=== PATIENT | female | born 1985 | race Hispanic/Latino ===

== ENCOUNTER 2019-09-05 13:10 | Emergency (ER) | payer MEDICAID | END 2019-09-05 14:35 | disposition home or self-care (01) | LOC: EDH 13:10 | DX: I10 Essential (primary) hypertension (principal) ==

== ENCOUNTER 2024-09-28 18:46 | Emergency (ER) | payer SELFPAY ==
[~2024-09-28] VITALS: Ht 160 cm; Wt 79.8 kg
[2024-09-28] MEDS ORDERED: IBUP-2077 PO (18:55)
[2024-09-28] MEDS ORDERED: CLIN-141 PO (18:55)
--- NOTE | 2024-09-28 18:56 | ERN ---
ED Note History of Present Illness Stated Complaint: C/O SWELLING TO RT SIDE OF FACE W/FACIAL DROOPING Chief Complaint: Face Pain/Problem Time Seen by MD: 18:48 Dictation: PATIENT IS A 39-YEAR-OLD FEMALE HERE WITH HER MOTHER WITH COMPLAINTS OF DENTAL PAIN WITH MILD SWELLING TO TOOTH NUMBER 28 AND 29 SHE HAS HAD FOR SEVERAL DAYS. SHE HAS HAD NO FEVER NO CHILLS NO NAUSEA VOMITING. STATES SHE DOES NOT HAVE A PRIMARY CARE DOCTOR NOR HAS SHE SEE A DENTIST. SHE TOLD ME HER TEETH HAVE BEEN ROTTEN FOR A LONG TIME AND FINALLY THEY BROKE OFF AT THE ROOT. Allergies: Coded Allergies: No Known Allergies (Unverified Allergy, Unknown, 09/28/24) Past Medical History History: Not Applicable RN Note Reviewed/Agreed w/PFSH: Yes Review of System Dictation CONSTITUTIONAL: NEGATIVE EXCEPT FOR HPI HEAD/FACE: NEGATIVE EXCEPT FOR HPI EENT: NEGATIVE EXCEPT FOR HPI DECAY TEETH NUMBER 28 AND 29 WITH MILD FACIAL SWELLING PROXIMAL RESPIRATORY: NEGATIVE EXCEPT FOR HPI GASTROINTESTINAL/ABDOMINAL: NEGATIVE EXCEPT FOR HPI GENITOURINARY: NEGATIVE EXCEPT FOR HPI MUSCULOSKELETAL: NEGATIVE EXCEPT FOR HPI INTEGUMENTARY: NEGATIVE EXCEPT FOR HPI NEUROLOGICAL/PSYCH: NEGATIVE EXCEPT FOR HPI HEMATOLOGIC/LYMPHATIC: NEGATIVE EXCEPT FOR HPI ALL SYSTEMS NEGATIVE, EXCEPT NOTED ABOVE. 13 POINT REVIEW OF SYSTEMS ASSESSED AND ALL NEGATIVE EXCEPT FOR ABOVE. Physical Exam Dictation VITAL SIGNS REVIEWED GENERAL APPEARANCE: ALERT, ORIENTED X 3, MILD ACUTE DISTRESS, WELL DEVELOPED, NOURISHED. HEAD AND FACE: NON-TRAUMATIC. EYES: PERRL, PINK CONJUNCTIVAS, EYELID NO TRAUMA, ANTERIOR CHAMBER WITH ARCUS SENILIS. EARS: PINNAS INTACT AND NO SIGNS OF TRAUMA OR ERYTHEMA EAR CANALS CLEAR AND NO DISCHARGE TM NO ERYTHEMA NOSE: NO DISCHARGE, NO BLEEDING. OROPHARYNX: TEETH ARE FRACTURED OFF AT NUMBER 28 AND 29 WITH DENTAL CARIES NOTED MILD RIGHT FACIAL SWELLING PROXIMAL TOOTH NUMBER 28 29 PHARYNX CLEAR,NO ERYTHEMA, TONSILS NO EXUDATES, NO ABSCESSES NOTED, MUCOUS MEMBRANE MOIST NECK: SUPPLE, NON-TENDER, NO THYROMEGALY, NO MASSES, NO JVD, NO BRUITS BREAST:DEFERRED CHEST:NO TENDERNESS, NO CREPITUS, NO PARADOXICAL MOVEMENT, NO RETRACTIONS LUNGS:CLEAR, WELL-VENTILATED, SYMMETRIC, NO RALES, NO WHEEZING, NO RHONCHI, NO STRIDOR, GOOD BREATH SOUNDS BILATERALLY HEART: REGULAR RATE, REGULAR RHYTHM, NO MURMUR, NO GALLOPS VASCULAR: NO PERIPHERAL EDEMA, ABDOMEN: SOFT, POSITIVE BOWEL SOUNDS, NONDISTENDED, NO GUARDING, NONTENDER, NO REBOUND, NO MASSES NO HEPATOMEGALY, NO SPLENOMEGALY, NO BERNSTEIN'S S IGN, NO HERNIAS. RECTAL: DEFERRED GENITAL: DEFERRED NEUROLOGICAL: NORMAL SPEECH, MOTOR FUNCTION INTACT, SENSORY FUNCTION INTACT MUSCULOSKELETAL: NECK NONTENDER, FULL RANGE OF MOTION, BACK NONTENDER, FULL RANGE OF MOTION, EXTREMITIES: NONTENDER, FULL RANGE OF MOTION SKIN: COLOR PINK, DRY, NO TURGOR, NO RASH, NO LACERATIONS, NO ABRASIONS, NO CONTUSIONS. LYMPHATIC: DEFERRED Results (Laboratory/Radiology) Labs Reviewed?: Yes ED Course ED Course Orders Procedure Category Date Status Time Ibuprofen 800 Mg Tab PHA 09/28/24 In Process (Motrin) 19:00 EIGHTEEN 52 MOTHER WAS EXPLAINED THAT WE HAVE NO DENTIST AVAILABLE IN THE EMERGENCY ROOM. I WOULD INITIATE TREATMENT WITH A AN NSAID, WE WILL PRESCRIBED CLINDAMYCIN AND TOLD HER TO GO TO [place] OR SEE ONE OF THE LOCAL DENTIST IN THE [facility] WITH A AN AFTER HOURS EMERGENCY NUMBER. Medical Decision Making MDM MEDICAL DISCHARGE MAKING BASED ON EMPIRIC TREATMENT FOR DENTAL CARIES INTO THE PULP AND FACIAL SWELLING. PATIENT WAS GIVEN CLINDAMYCIN PRESCRIPTION WITH IBUPROFEN GIVEN IBUPROFEN IN THE EMERGENCY ROOM FOR TREATMENT OF PAIN AND TOLD TO FIND A DENTIST WITH A AN AFTER HOURS EMERGENCY NUMBER OR GO TO [place] FOR TREATMENT DX & DISP Disposition: Discharge Departure Impression: Primary Impression: Dental caries extending into pulp Additional Impression: Dentalgia Condition: Stable Scripts Ibuprofen (Ibuprofen 800 mg Tab) 800 Mg Tab 800 MG PO Q8H PRN for fever or pain, #30 TAB 0 Refills Prov: MADHURI MAR NP 09/28/24 Clindamycin HCl (Clindamycin HCl) 300 Mg Capsule 1 CAP PO QID for 10 Days, #40 CAP 0 Refills TAKE TWO CAPSULES FOR 1ST DOSE, THEN TAKE ONE CAPSULE EVERY 6 HOURS DIRECTED UNTIL GONE Prov: MADHURI MAR NP 09/28/24 Additional Instructions: FOLLOW-UP WITH PRIMARY CARE PROVIDER IN 1 TO 2 DAYS. TAKE MEDICATIONS DIRECTED HERE IN THE EMERGENCY ROOM. OKAY TO CONTINUE HOME MEDICATIONS UNLESS OTHERWISE DISCUSSED DURING YOUR VISIT IN THE EMERGENCY ROOM TODAY. RETURN TO YOUR NEAREST EMERGENCY ROOM IF SYMPTOMS WORSEN OR IF THERE IS NO IMPROVEMENT. CALL 911 IF YOU NEED IMMEDIATE ASSISTANCE. TAKE TYLENOL OR MOTRIN OVE [id number] NEEDED AND IF NO CONTRAINDICATIONS ARE PRESENT. INCREASE ORAL HYDRATION. A WOUND CULTURE OR URINE CULTURE WAS ORDERED HERE IN THE EMERGENCY ROOM DEPARTMENT PLEASE FOLLOW-UP WITH PRIMARY CARE PROVIDER AND ADVISE THEM TO GET REPEAT PORTS FROM OUR FACILITY. IF YOU HAD ANY MARYCRUZ WRAP/SPLINTS THAT WERE APPLIED HERE, PLEASE DO NOT REMOVE THEM UNTIL YOU SEE YOUR PRIMARY CARE OR SPECIALTY. SUGGEST DENTAL SOFT DIET. TAKE CLINDAMYCIN DIRECTED FOR INFECTION UNTIL GONE. SEE THE [facility]LLOW PAGES FOR A DENTIST WITH A AN AFTER HOURS EMERGENCY NUMBER OR MAY OBTAIN DENTAL CARE IN [place]. Referrals: SELF,REFERRAL (PCP) Time of Disposition: 18:54 I have reviewed the case, and I agree with, Diagnosis and Plan MADHURI MAR TRAP SETTER Sep 28, 2024 18:56
[2024-09-28] MEDS: ibuPROFEN 800 MG TAB PO ONE (19:00)
[2024-09-28 19:02] VITALS: BP 135/90; PULSE 95; RESP 16; TEMP 98.5; O2SAT 98
== END 2024-09-28 19:18 | disposition home or self-care (01) ==
LOC: EDH 18:46
DX: K02.9 Dental caries, unspecified (principal)
CPT/HCPCS: 99283